=== PATIENT | female | born 1930 | race Two or more races ===

== ENCOUNTER 2018-03-24 12:01 | Emergency (ER) | payer OTHER ==
[2018-03-24 12:08] VITALS: BMI 33.7
[2018-03-24] MEDS ORDERED: ACETAMINOPHEN 325 MG TABLET (FP) PO ONE (12:36)
[2018-03-24] MEDS ORDERED: ACETAMINOPHEN 325 MG TABLET (FP) ONE (12:39)
--- NOTE | 2018-03-24 12:43 | PDOC ---
History of Present Illness - General Chief Complaint: Respiratory Stated Complaint: COUGH Time Seen by Provider: 03/24/18 12:26 - History of Present Illness Initial Comments: The patient is an 87F w/ a history of COPD, BLE DVT/PE (Plavix), and diverticulitis who presents for evaluation of 3weeks of productive cough with clear sputum. She endorses associated malaise, subjective fevers/chills, and ant. chest wall pain when she coughs. She has not been evaluated for these current complaints yet. She has been using her albuterol and nebs at home w/ little relief. She presented today for persistent symptoms and not being able to be seen until Wednesday by her PCP (Dr. Miller Ojeda). She did not received the flu vaccine this year. She denies sick contacts, CHISHOLM, vision changes, exertional chest pain, abdominal pain, N/V/C/D, dysuria, or changes in sensation 03/24/18 12:37 Past History - Past Medical History Allergies/Adverse Reactions: Allergies Allergy/AdvReac Type Severity Reaction Status Date / Time diclofenac sodium Allergy Intermediate Verified 07/30/16 15:04 [From [facility]] Home Medications: Ambulatory Orders Albuterol Sulfate Inhaler - [Ventolin HFA Inhaler -] 1 puff IH QID PRN 07/30/16 Clopidogrel Bisulfate [Plavix -] 1 tab PO DAILY 07/30/16 Acetaminophen [Tylenol] 650 mg PO Q4HWA PRN 09/15/16 Azithromycin 250 mg PO DAILY 4 Days #4 tablet 03/24/18 Asthma: Yes COPD: Yes GI Disorders: Yes (diverticulitis) - Surgical History Appendectomy: Yes - Suicide/Smoking/Psychosocial Hx Smoking History: Never smoked If you are a former smoker, when did you quit?: 3o years ago Review of Systems - Review of Systems Able to Perform ROS?: Yes Comments:: GENERAL/CONSTITUTIONAL: + subjective fevers/chills HEAD, EYES, EARS, NOSE AND THROAT: No change in vision. No ear pain or discharge. No sore throat CARDIOVASCULAR: No orthopnea RESPIRATORY: +cough; Denies hemoptysis GASTROINTESTINAL: No nausea, vomiting, diarrhea or constipation GENITOURINARY: No dysuria, frequency, or change in urination MUSCULOSKELETAL: No joint or muscle swelling or pain. No neck or back pain SKIN: No rash NEUROLOGIC: No headache, vertigo, loss of consciousness, or change in strength/ sensation ENDOCRINE: No increased thirst. No abnormal weight change HEMATOLOGIC/LYMPHATIC: +hx DVT/PE (plavix) ALLERGIC/IMMUNOLOGIC: No hives or skin allergy 03/24/18 12:43 Is the patient limited Icelandic proficient: No *Physical Exam - Vital Signs Last Vital Signs Temp Pulse Resp BP Pulse Ox 99.4 F 114 H 28 H 124/48 L 97 03/24/18 12:07 03/24/18 12:07 03/24/18 12:07 03/24/18 12:07 03/24/18 12:07 - Physical Exam Comments: GENERAL: Awake, alert, and fully oriented, in no acute distress HEAD: No signs of trauma, normocephalic, atraumatic EYES: PERRLA, EOMI, sclera anicteric, conjunctiva clear ENT: Hearing grossly normal, nares patent, oropharynx clear without exudates. Moist mucosa LUNGS: +productive cough, speaks in full sentences, no wheeze/crackles appreciated, good air entry b/l HEART: Regular rate and rhythm, normal S1 and S2, no murmurs appreciated, peripheral pulses normal and equal bilaterally ABDOMEN: Soft, nontender, normoactive bowel sounds. No guarding, no rebound EXTREMITIES: BLE w/ venous stasis changes, well healed procedural scars, 1+ BLE edema (chronic) NEUROLOGICAL: Cranial nerves II through XII grossly intact. Normal speech, no focal sensorimotor deficits SKIN: Warm, Dry 03/24/18 12:45 Moderate Sedation - Procedure Monitoring Vital Signs: Procedure Monitoring Vital Signs Temperature 99.4 F 03/24/18 12:07 Pulse Rate 114 H 03/24/18 12:07 Respiratory Rate 28 H 03/24/18 12:07 Blood Pressure 124/48 L 03/24/18 12:07 O2 Sat by Pulse Oximetry (%) 97 03/24/18 12:07 ED Treatment Course - LABORATORY CBC & Chemistry Diagram: 03/24/18 12:55 03/24/18 12:55 - RADIOLOGY Radiology Studies Ordered: Category Date Time Status CHEST PA & LAT [RAD] Stat Radiology 03/24/18 12:35 Ordered Medical Decision Making - Medical Decision Making The patient is an 87F w/ a history of COPD, DVT/PE (Plavix), and diverticulitis who presents for evaluation of 3wks of productive cough, malaise, and subjective fevers. ED Course CMP, CBC, Cardiac profile, Rapid flu ECG CXR Tylenol 975mg PO once Guifenasen 10mL PO once 03/24/18 12:48 No leukocytosis Hgb 10.5 Lytes wnl Trop I neg LFTs wnl No RENA 03/24/18 14:49 W/o w/ improved air movement s/p nebs pending XR 03/24/18 15:06 CXR w/ evidence of RLL consolidation which was present on previous films but to lesser degree Patient reports being at her baseline for walking tolerance and reports her breathing is back to her baseline as well Breath sounds improved b/l w/ improved air entry Azithromycin 500mg PO once in ED Rx for Azithromycin 250mg PO daily for 4 days sent to pts pharmacy for PNA Plan for D/C w/ PCP f/u Discharge instructions and return precautions given Patient in agreement and verbalize understanding Dispo: home 03/24/18 15:16 *DC/Admit/Observation/Transfer Diagnosis at time of Disposition: Cough Upper respiratory infection Qualifiers: URI type: unspecified URI Qualified Code(s): J06.9 - Acute upper respiratory infection, unspecified - Discharge Dispostion Disposition: HOME Condition at time of disposition: Improved Decision to Admit order: No - Prescriptions Prescriptions: Azithromycin 250 mg PO DAILY 4 Days #4 tablet - Referrals Referrals: Miller Ojeda MD [Non Staff, Medical] - - Patient Instructions Printed Discharge Instructions: DI for Pneumonia -- Adult Additional Instructions: You were seen in the Emergency Department for evaluation of a cough for three weeks likely due to a respiratory infection. Review the handout provided at discharge. A prescription for antibiotics (Azithromycin) was sent to the pharmacy that you specified, take as directed. Follow up with your primary care provider. Return to the Emergency Department if you develop fevers/chills, worsening symptoms, chest pain, trouble breathing, vomiting, diarrhea, or any new/ concerning symptoms. Se lo muriel en el Departamento de Emergencias para carol evaluacin de tos eddie gonzalo semanas, probablemente debido a carol infeccin respiratoria. Revise el folleto provisto al momento del britt. Se envi carol receta de antibiticos ( azitromicina) a la farmacia que especific, tome segn las indicaciones. Meghan un seguimiento con pedersen proveedor de atencin primaria. Regrese al Departamento de Emergencias si presenta fiebre / escalofros, empeoramiento de los sntomas, dolor en el pecho, dificultad para respirar, vmitos, diarrea o cualquier sntoma nuevo o relacionado. Print Language: URUGUAYAN - Post Discharge Activity
[2018-03-24] MEDS ORDERED: SODIUM CHLORIDE 0.9% 500 ML INFUS.BAG IV ONE (12:51)
--- NOTE | 2018-03-24 12:55 | PDOC ---
Attending Attestation - HPI HPI: 03/24/18 13:43 The patient is a 87 year old female, with a significant past medical history of COPD, BLE DVT/PE (on Plavix), and diverticulitis , who presents to the emergency department with, 3 weeks of productive cough (clear sputum), generalized weakness, and subjective fever. Patient endorses an associated mild chest wall pain after coughing. She took at home nebulizers and rescue inhalers , with minimal relief. She notes trying to see her PCP today but, he was out of the office. She denies recent fevers, chills, headache or dizziness. She denies recent nausea, vomit, diarrhea or constipation. She denies recent dysuria, frequency, urgency or hematuria. Allergies: Diclofenac sodium <Macho Pandey - Last Filed: 03/24/18 13:43> - Resident Resident Name: Zaire Gomes - ED Attending Attestation I have performed the following: I have examined & evaluated the patient, The case was reviewed & discussed with the resident, I agree w/resident's findings & plan, Exceptions are as noted - Physicial Exam PE: GENERAL: Awake, alert, and fully oriented, in no acute distress HEAD: No signs of trauma EYES: PERRLA, EOMI, sclera anicteric, conjunctiva clear ENT: Auricles normal inspection, hearing grossly normal, nares patent, oropharynx clear without exudates. Moist mucosa NECK: Normal ROM, supple, no lymphadenopathy, JVD, or masses LUNGS: Slightly dec air entry B/L with wheezing. Intermittent hacking cough. HEART: Regular rate and rhythm, normal S1 and S2, no murmurs, rubs or gallops ABDOMEN: Soft, nontender, normoactive bowel sounds. No guarding, no rebound. No masses EXTREMITIES: Normal range of motion, no edema. No clubbing or cyanosis. No cords, erythema, or tenderness NEUROLOGICAL: Cranial nerves II through XII grossly intact. Normal speech, normal gait. Motor and sensation intact SKIN: Warm, Dry, normal turgor, no rashes or lesions noted. - Medical Decision Making Pt with bronchitis. Improving with nebs and steroids, able to ambulate in the ED. Will treat with abx, as she has productive cough, prior lung history. <Sadaf Robledo - Last Filed: 03/28/18 08:13> Attestations - Attestations 03/24/18 13:44 Documentation prepared by Macho Pandey, acting as medical accounting clerk for Sadaf Robledo MD. <Macho Pandey - Last Filed: 03/24/18 13:43>
[2018-03-24] MEDS ORDERED: guaiFENesin 200 MG/10 ML 10 ML UNIT-DOSE CUPS PO ONE (13:01)
[2018-03-24 13:19] LABS: BASO % 1.4 % (0-2.0); EOS % 1.9 % (0-4.5); HEMATOCRIT 31.1 % (32.4-45.2); HEMOGLOBIN 10.5 GM/dL (10.7-15.3); LYMPH % 31.7 % (8-40); MCH 32.8 pg (25.7-33.7); MCHC 33.8 g/dl (32.0-36.0); MEAN CELL VOLUME 97.3 fl (80-96); MEAN PLT VOLUME 9.2 fl (7.5-11.1); MONO % 27.8 % (3.8-10.2); NEUT % 37.2 % (42.8-82.8); PLATELET COUNT 290 K/MM3 (134-434); RDW 14.9 % (11.6-15.6)
[2018-03-24] MEDS ORDERED: methylPREDNISolone NA SUCC 125 MG/2 ML VIAL IVPB ONE (13:21)
[2018-03-24] MEDS ORDERED: guaiFENesin 200 MG/10 ML 10 ML UNIT-DOSE CUPS ONE (13:31)
[2018-03-24] MEDS ORDERED: ALBUTEROL SO4 2.5/IPRATROPIUM 0.5 INH SOL 3 ML VIAL.NEB. NEB ONE (13:31)
[2018-03-24] MEDS ORDERED: methylPREDNISolone NA SUCC 125 MG/2 ML VIAL ONE (13:31)
[2018-03-24] MEDS: ALBUTEROL SO4 2.5/IPRATROPIUM 0.5 INH SOL 3 ML VIAL.NEB. NEB SCH ×3 (13:33→15:39)
[2018-03-24 13:38] LABS: ALBUMIN 2.8 g/dl (3.4-5.0); ALK PHOS 78 U/L (45-117); ANION GAP 7 MMOL/L (8-16); BILIRUBIN,TOTAL 0.2 mg/dL (0.2-1); BLOOD UREA NITROGEN 12 mg/dL (7-18); CALCIUM 8.3 mg/dL (8.5-10.1); CHLORIDE 103 mmol/L (98-107); CO2 26 mmol/L (21-32); CREATININE 0.9 mg/dL (0.55-1.3); GLUCOSE,RANDOM 84 mg/dL (74-106); SGOT/AST 24 U/L (15-37); SGPT/ALT 15 U/L (13-61); SODIUM 136 mmol/L (136-145); TOT PROT 6.2 g/dl (6.4-8.2)
[2018-03-24 15:32] LABS: ANISOCYTOSIS 1+; MACROCYTOSIS 1+
[2018-03-24] MEDS ORDERED: AZITHROMYCIN 500 MG TABLET PO ONE (15:42)
[2018-03-24] MEDS ORDERED: CODEINE SO4 30 MG TABLET PO ONE (15:42)
[2018-03-24] MEDS ORDERED: CODEINE SO4 30 MG TABLET ONE (15:54)
[2018-03-24] MEDS ORDERED: AZITHROMYCIN 500 MG TABLET ONE (15:54)
[2018-03-24 16:15] VITALS: BP 127/73; PULSE 76; TEMP 98.7
--- NOTE | 2018-03-24 16:20 | EKG ---
Test Reason : Blood Pressure : / mmHG Vent. Rate : 078 BPM Atrial Rate : 078 BPM P-R Int : 106 ms QRS Dur : 078 ms QT Int : 390 ms P-R-T Axes : 050 -43 001 degrees QTc Int : 444 ms SINUS RHYTHM WITH SHORT MA LEFT AXIS DEVIATION LOW VOLTAGE QRS ABNORMAL ECG NO PREVIOUS ECGS AVAILABLE Confirmed by ELSA KENNEY MD ([id number]) on 03/24/2018 4:20:42 PM Referred By: Confirmed By:ELSA KENNEY MD
== END 2018-03-24 16:23 | disposition home or self-care (01) ==
LOC: JER 12:01
PROC: 3E0333Z Introduction of Anti-inflammatory into Peripheral Vein, Percutaneous Approach (ICD-10-PCS; principal; 2018-03-24)
PROC: 3E0F7GC Introduction of Other Therapeutic Substance into Respiratory Tract, Via Natural or Artificial Opening (ICD-10-PCS; 2018-03-24)
DX: J06.9 Acute upper respiratory infection, unspecified (principal); J44.9 Chronic obstructive pulmonary disease, unspecified; Z86.711 Personal history of pulmonary embolism; Z86.718 Personal history of other venous thrombosis and embolism; Z79.01 Long term (current) use of anticoagulants; Z87.19 Personal history of other diseases of the digestive system
CPT/HCPCS: 36415; 71046-TC-FY; 80053; 82550; 84484; 85025; 87804; 93005; 93010; 99282-25

== ENCOUNTER 2020-02-24 11:29 | Emergency (ER) | payer OTHER ==
[2020-02-24 12:13] VITALS: TEMP 97.7; BMI 38.9
[2020-02-24] MEDS ORDERED: ALBUTEROL SO4 HFA INHALER IH ONE (12:27)
[2020-02-24 13:40] LABS: BASO % 0.5 % (0-2.0); EOS % 0.6 % (0-4.5); HEMOGLOBIN 8.7 GM/dL (10.7-15.3); LYMPH % 12.7 % (8-40); MCH 26.9 pg (25.7-33.7); MCHC 31.2 g/dl (32.0-36.0); MEAN CELL VOLUME 86.2 fl (80-96); MEAN PLT VOLUME 10.2 fl (7.5-11.1); MONO % 13.6 % (3.8-10.2); NEUT % 72.6 % (42.8-82.8); PLATELET COUNT 214 K/MM3 (134-434); RBC 3.25 M/mm3 (3.60-5.2); RDW 17.6 % (11.6-15.6); WHITE BLOOD COUNT 7.5 K/mm3 (4.0-10.0)
[2020-02-24 13:47] LABS: INR 1.01 (0.83-1.09); PROTHROMBIN TIME (PATIENT) 12.2 SEC (9.7-13.0)
[2020-02-24 13:49] LABS: ACTIVATED PTT 25.9 SECONDS (25.2-36.5)
[2020-02-24 13:57] LABS: CHLORIDE 94 mmol/L (98-107); POTASSIUM 5.1 mmol/L (3.5-5.1); SODIUM 128 mmol/L (136-145)
[2020-02-24 13:59] LABS: ALBUMIN 3.1 g/dl (3.4-5.0); ANION GAP 7 MMOL/L (8-16); BLOOD UREA NITROGEN 19.3 mg/dL (7-18); CO2 28 mmol/L (21-32); GLUCOSE,RANDOM 100 mg/dL (74-106)
[2020-02-24 14:03] LABS: SGOT/AST 59 U/L (15-37); SGPT/ALT 83 U/L (13-61)
[2020-02-24 14:04] LABS: BILIRUBIN,TOTAL 0.4 mg/dL (0.2-1); TOT PROT 7.2 g/dl (6.4-8.2)
[2020-02-24 14:06] LABS: ALK PHOS 137 U/L (45-117)
[2020-02-24 14:08] LABS: N-TERMINAL BNP 8405.9 pg/ml (5-450)
[2020-02-24 18:11] VITALS: BP 153/44; PULSE 36
== END 2020-02-24 14:50 | disposition short-term general hospital (02) ==
LOC: JER 11:29
DX: R06.02 Shortness of breath (principal); I44.2 Atrioventricular block, complete
CPT/HCPCS: 36415; 71045-TC-FY; 80053; 82550; 83690; 83880; 84484; 85025; 85610; 85730; 93005; 93010; 99291; C9803; U0003

== ENCOUNTER 2020-04-12 14:53 | Inpatient (IN) | payer OTHER ==
[2020-04-12 17:26] LABS: BASO % 0.8 % (0-2.0); EOS % 1.8 % (0-4.5); HEMATOCRIT 28.4 % (32.4-45.2); HEMOGLOBIN 8.7 GM/dL (10.7-15.3); MCH 24.1 pg (25.7-33.7); MCHC 30.6 g/dl (32.0-36.0); MEAN CELL VOLUME 78.6 fl (80-96); MEAN PLT VOLUME 8.9 fl (7.5-11.1); MONO % 15.4 % (3.8-10.2); PLATELET COUNT 351 K/MM3 (134-434); RBC 3.61 M/mm3 (3.60-5.2); WHITE BLOOD COUNT 7.6 K/mm3 (4.0-10.0)
[2020-04-12 17:35] LABS: INR 1.08 (0.83-1.09); PROTHROMBIN TIME (PATIENT) 13.3 SEC (9.7-13.0)
[2020-04-12 17:38] LABS: ACTIVATED PTT 25.4 SECONDS (25.2-36.5)
[2020-04-12 17:47] LABS: POTASSIUM 4.6 mmol/L (3.5-5.1)
[2020-04-12 17:49] LABS: CALCIUM 8.5 mg/dL (8.5-10.1)
[2020-04-12 17:50] LABS: ALBUMIN 2.9 g/dl (3.4-5.0)
[2020-04-12 17:53] LABS: CREATININE 0.7 mg/dL (0.55-1.3)
[2020-04-12 17:54] LABS: BILIRUBIN,TOTAL 0.3 mg/dL (0.2-1)
[2020-04-12 17:55] LABS: TOT PROT 7.2 g/dl (6.4-8.2)
[2020-04-12] MEDS ORDERED: ENOXAPARIN NA (PORCINE) 80 MG/0.8 ML DISP.SYRIN SQ ONE (19:47)
[2020-04-12] MEDS: ENOXAPARIN NA (PORCINE) 80 MG/0.8 ML DISP.SYRIN SQ SCH (20:24)
[2020-04-13] MEDS ORDERED: ACETAMINOPHEN 325 MG TABLET (FP) PO ONE (00:07)
[2020-04-13 03:26] VITALS: BMI 35.5
[2020-04-13] MEDS: ENOXAPARIN NA (PORCINE) 80 MG/0.8 ML DISP.SYRIN SQ SCH (06:17)
[2020-04-13] MEDS ORDERED: PNEUMOC 13-VAL CONJ-DIP CRM/PF 0.5 ML DISP.SYRIN IM ONE (10:00)
[2020-04-13 10:08] LABS: BASO % 0.6 % (0-2.0); HEMATOCRIT 27.3 % (32.4-45.2); HEMOGLOBIN 8.4 GM/dL (10.7-15.3); LYMPH % 27.3 % (8-40); MCHC 30.8 g/dl (32.0-36.0); MONO % 13.8 % (3.8-10.2); NEUT % 56.3 % (42.8-82.8); PLATELET COUNT 322 K/MM3 (134-434); RDW 19.8 % (11.6-15.6); WHITE BLOOD COUNT 6.3 K/mm3 (4.0-10.0)
[2020-04-13 10:20] LABS: EPI CELLS 31 /uL (0-25.1); HYALINE CASTS 1 /uL (0-3.1); PH,URINE 6.5 (5.0-8.0); URINE APPEARANCE CLEAR; URINE BACTERIA 179 /uL (0-1359); URINE BILIRUBIN NEGATIVE (NEGATIVE); URINE COLOR YELLOW; URINE GLUCOSE (UA) NEGATIVE (NEGATIVE); URINE KETONE NEGATIVE (NEGATIVE); URINE LEUK ESTERASE 1+ (NEGATIVE); URINE NITRITE NEGATIVE (NEGATIVE); URINE PROTEIN NEGATIVE (NEGATIVE); URINE RBC 11 /uL (0-23.9); URINE WBC 43 /uL (0-25.8)
[2020-04-13 10:53] LABS: ALBUMIN 2.5 g/dl (3.4-5.0); BLOOD UREA NITROGEN 13.6 mg/dL (7-18); CALCIUM 8.3 mg/dL (8.5-10.1); MAGNESIUM 2.2 mg/dL (1.8-2.4)
[2020-04-13 10:55] LABS: CREATININE 0.7 mg/dL (0.55-1.3)
[2020-04-13 10:56] LABS: BILIRUBIN,TOTAL 0.5 mg/dL (0.2-1); PHOSPHOROUS 3.3 mg/dL (2.5-4.9)
[2020-04-13 10:57] LABS: TOT PROT 6.1 g/dl (6.4-8.2)
[2020-04-13 11:12] LABS: POTASSIUM 4.2 mmol/L (3.5-5.1)
[2020-04-13] MEDS: ZINC SULFATE 220 MG CAPSULE (FP) PO SCH (12:04)
[2020-04-13] MEDS: CHOLECALCIFEROL (VIT D3) 1,000 UNIT (25 MCG) TABLET PO SCH (12:04)
[2020-04-13] MEDS: ASCORBIC ACID 500 MG TABLET (FP) PO SCH ×2 (12:04→22:01)
[2020-04-13] MEDS ORDERED: IRON SUCROSE INJECTION 200 MG in SODIUM CHLORIDE 90 ML IVPB ONE (14:00)
[2020-04-13] MEDS: APIXABAN 5 MG TABLET PO SCH (22:01)
[2020-04-14 09:38] LABS: BASO % 0.7 % (0-2.0); EOS % 4.2 % (0-4.5); HEMATOCRIT 27.8 % (32.4-45.2); HEMOGLOBIN 8.5 GM/dL (10.7-15.3); LYMPH % 29.2 % (8-40); MCH 23.8 pg (25.7-33.7); MCHC 30.6 g/dl (32.0-36.0); MEAN CELL VOLUME 77.8 fl (80-96); MEAN PLT VOLUME 8.8 fl (7.5-11.1); MONO % 12.9 % (3.8-10.2); PLATELET COUNT 389 K/MM3 (134-434); RBC 3.58 M/mm3 (3.60-5.2); WHITE BLOOD COUNT 5.8 K/mm3 (4.0-10.0)
[2020-04-14 10:03] LABS: POTASSIUM 4.5 mmol/L (3.5-5.1)
[2020-04-14 10:09] LABS: ALBUMIN 2.6 g/dl (3.4-5.0); BLOOD UREA NITROGEN 9.8 mg/dL (7-18); CALCIUM 8.3 mg/dL (8.5-10.1)
[2020-04-14 10:10] LABS: MAGNESIUM 2.1 mg/dL (1.8-2.4)
[2020-04-14 10:12] LABS: CREATININE 0.7 mg/dL (0.55-1.3)
[2020-04-14 10:13] LABS: BILIRUBIN,TOTAL 0.3 mg/dL (0.2-1)
[2020-04-14] MEDS: ASCORBIC ACID 500 MG TABLET (FP) PO SCH ×2 (10:14→21:47)
[2020-04-14] MEDS: CHOLECALCIFEROL (VIT D3) 1,000 UNIT (25 MCG) TABLET PO SCH (10:14)
[2020-04-14] MEDS: APIXABAN 5 MG TABLET PO SCH ×2 (10:14→21:47)
[2020-04-14] MEDS: ZINC SULFATE 220 MG CAPSULE (FP) PO SCH (10:14)
[2020-04-14] MEDS: PANTOPRAZOLE 40 MG TABLET PO SCH (10:14)
[2020-04-14 10:15] LABS: TOT PROT 6.5 g/dl (6.4-8.2)
[2020-04-15 08:10] LABS: BASO % 0.7 % (0-2.0); EOS % 4.7 % (0-4.5); HEMATOCRIT 25.8 % (32.4-45.2); INR 1.37 (0.83-1.09); LYMPH % 30.5 % (8-40); MCH 24.2 pg (25.7-33.7); MCHC 31.1 g/dl (32.0-36.0); MEAN CELL VOLUME 78.1 fl (80-96); MEAN PLT VOLUME 8.5 fl (7.5-11.1); MONO % 13.7 % (3.8-10.2); NEUT % 50.4 % (42.8-82.8); PLATELET COUNT 371 K/MM3 (134-434); PROTHROMBIN TIME (PATIENT) 16.4 SEC (9.7-13.0); RDW 19.5 % (11.6-15.6); WHITE BLOOD COUNT 7.8 K/mm3 (4.0-10.0)
[2020-04-15 08:25] LABS: POTASSIUM 4.8 mmol/L (3.5-5.1)
[2020-04-15 08:37] LABS: ALBUMIN 2.3 g/dl (3.4-5.0); BLOOD UREA NITROGEN 9.9 mg/dL (7-18); MAGNESIUM 2.1 mg/dL (1.8-2.4)
[2020-04-15 08:38] LABS: CALCIUM 8.3 mg/dL (8.5-10.1)
[2020-04-15 08:40] LABS: CREATININE 0.7 mg/dL (0.55-1.3)
[2020-04-15 08:41] LABS: BILIRUBIN,TOTAL 0.2 mg/dL (0.2-1)
[2020-04-15] MEDS: ASCORBIC ACID 500 MG TABLET (FP) PO SCH (10:25)
[2020-04-15] MEDS: CHOLECALCIFEROL (VIT D3) 1,000 UNIT (25 MCG) TABLET PO SCH (10:25)
[2020-04-15] MEDS: ZINC SULFATE 220 MG CAPSULE (FP) PO SCH (10:25)
[2020-04-15] MEDS: PANTOPRAZOLE 40 MG TABLET PO SCH (10:25)
[2020-04-15] MEDS: APIXABAN 5 MG TABLET PO SCH (10:25)
[2020-04-15] MEDS ORDERED: BAMLANIVIMAB 700 MG in SODIUM CHLORIDE 250 ML IVPB ONE (15:00)
[2020-04-15 16:11] VITALS: TEMP 98
[2020-04-15 17:07] LABS: GLIADIN ANTIBODY IGA 14 units (0-19); GLIADIN ANTIBODY IGG 3 units (0-19); TRANSGLUTAMINASE IGG < 2 U/mL (0-5)
[2020-04-15 18:38] VITALS: BP 127/78; PULSE 75
== END 2020-04-15 19:34 | disposition home or self-care (01) | DRG 299 ==
LOC: JER 14:53 → JERBED 19:49 → J7W 04-13 00:39
PROVIDERS: ADMIT Internal Medicine; ATTEND Nurse Practitioner Acute Care
PROC: XW033F6 Introduction of Bamlanivimab Monoclonal Antibody into Peripheral Vein, Percutaneous Approach, New Technology Group 6 (ICD-10-PCS; principal; 2020-04-15)
DX: I82.432 Acute embolism and thrombosis of left popliteal vein (principal); U07.1 COVID-19; I44.2 Atrioventricular block, complete; J96.11 Chronic respiratory failure with hypoxia; J44.9 Chronic obstructive pulmonary disease, unspecified; M54.5 Low back pain; D64.9 Anemia, unspecified; E66.9 Obesity, unspecified; Z68.35 Body mass index [BMI] 35.0-35.9, adult; I10 Essential (primary) hypertension; Z90.49 Acquired absence of other specified parts of digestive tract; D50.9 Iron deficiency anemia, unspecified; Z86.711 Personal history of pulmonary embolism; Z95.0 Presence of cardiac pacemaker
CPT/HCPCS: 36415; 71045-TC-FY; 80053; 81003; 82272; 82607; 82728; 82746; 82784; 83010; 83516; 83540; 83550; 83615; 83735; 84100; 84155; 84165; 84484; 85025; 85045; 85379; 85610; 85730; 86140; 86769; 87804; 93005; 93010; 93970-TC; 99285-25; C9803; J1756; M0239; Q0239; U0003